=== PATIENT | female | born 1975 | race Two or more races ===

== ENCOUNTER 2022-04-20 05:50 | Day surgery (SDC) | payer OTHER ==
[~2022-04-20 05:50] MED LIST: AVAPRO75 MG PO; CLONAZEPAM2 MG PO; RESTORIL; SEROQUE PO; VISTARIL PO
[2022-04-20] MEDS ORDERED: IBU600 MG PO (09:30)
== END 2022-04-20 14:40 | disposition home or self-care (01) ==
LOC: CIR.AMB 05:50
PROVIDERS: ATTEND Obstetrics & Gynecology Gynecology
DX: D06.0 Carcinoma in situ of endocervix (principal); Z20.822 Contact with and (suspected) exposure to COVID-19; I10 Essential (primary) hypertension